=== PATIENT | female | born 1965 | race Caucasian/White ===

== ENCOUNTER 2016-08-05 10:12 | Outpatient (CLI) ==
[2016-02-24 22:44] VITALS: BMI 29.2
[2016-08-05 10:41] LABS: BASOPHILS % (AUTO) 0.8 % (0.0-3.0); EOSINOPHILS # (AUTO) 0.2 K/ul (0.0-0.7); EOSINOPHILS % (AUTO) 4.2 % (0.0-7.0); HEMATOCRIT 38.6 % (37.0-47.0); HEMOGLOBIN 13.2 g/dl (12.0-16.0); IMMATURE GRANULOCYTE % (AUTO) 0.2 % (0.0-5.0); LYMPHOCYTES # (AUTO) 1.3 K/uL (0.60-3.4); LYMPHOCYTES % (AUTO) 26.5 (10.0-50.0); MEAN CORPUSCULAR HEMOGLOBIN 30.8 pg (27.0-31.0); MEAN CORPUSCULAR HGB CONC 34.2 (31.8-35.4); MEAN CORPUSCULAR VOLUME 90.2 fl (81.0-99.0); MONOCYTES # (AUTO) 0.5 K/uL (0.4-2.0); MONOCYTES % (AUTO) 9.3 (0-10); PLATELET COUNT 215 10^3/uL (140-440); RED BLOOD COUNT 4.28 10^6/ul (4.20-5.40); WHITE BLOOD COUNT 5.05 K/ul (4.6-10.2)
[2016-08-05 11:21] LABS: ALBUMIN 3.9 g/dL (3.4-5.0); ALBUMIN/GLOBULIN RATIO 1.44; ANION GAP 14.1; BILIRUBIN,TOTAL 0.62 mg/dL (0.00-1.20); BUN/CREATININE RATIO 21.87; CALCIUM 9.1 mg/dL (8.2-10.2); CHOL/HDL RATIO 4.5 (4.5-5.5); CREATININE 0.64 mg/dL (0.60-1.30); POTASSIUM 4.1 mmol/L (3.5-5.10); TOTAL PROTEIN 6.6 g/dL (6.4-8.2)
== END 2016-08-05 10:13 | disposition home or self-care (01) ==
LOC: LAB 10:12
PROVIDERS: ATTEND Family Medicine
DX: I10 Essential (primary) hypertension (principal); E78.5 Hyperlipidemia, unspecified; R73.9 Hyperglycemia, unspecified; E66.9 Obesity, unspecified; Z79.899 Other long term (current) drug therapy
CPT/HCPCS: 36415; 80053; 80061; 83036; 84439; 84443; 85025

== ENCOUNTER 2016-09-07 08:22 | Emergency (ER) ==
[2016-09-07 08:31] VITALS: BP 132/94; TEMP 100.6; BMI 27.4
--- NOTE | 2016-09-07 08:57 | ED.PDOC ---
General ED Provider: Dr. STACI MEDEROS Chief Complaint: Nausea/Vomiting Stated Complaint: fever chills, coughing, started vomiting since night, hurting all over. Time Seen by Physician: 08:54 Mode of Arrival: Walk-In Information Source: Patient Primary Care Provider: MARIELA NOLASCO Nursing and Triage Documentation Reviewed and Agree: Yes Miscellaneous Complaint Exam - Febrile Illness/Adult Complaint/Exam Symptoms Are: Still present Episodes Lasting: Hours Initial Severity: Moderate Current Severity: Moderate Alleviating: Reports: None Associated Signs and Symptoms: Reports: Headache, Cough, Sore throat, Nausea, Vomiting, Arthralgia, Myalgia Pseudomonas Risk Factors: Reports: None Serious Bacterial Infection Risk Factors: Reports: None Current Antibiotic Use: No Related Surgical History: None Specific Findings: Absent: Meningeal signs, Diaphoresis, Joint swelling Differential Diagnoses: Pneumonia, Viremia Review of Systems - Review Of Systems Constitutional: Reports: Fever, Malaise, Weakness Eyes: Reports: No symptoms Ears, Nose, Mouth, Throat: Reports: Nose discharge, Throat pain Respiratory: Reports: Cough Cardiac: Reports: No symptoms GI: Reports: Nausea, Vomiting : Reports: No symptoms Musculoskeletal: Reports: No symptoms Skin: Reports: No symptoms Neurological: Reports: No symptoms Endocrine: Reports: No symptoms Hematologic/Lymphatic: Reports: No symptoms All Other Systems: Reviewed and Negative Past Medical History - Past Medical History Previously Healthy: Yes Endocrine: Reports: None Cardiovascular: Reports: Hypertension Respiratory: Reports: None Hematological: Reports: None Gastrointestinal: Reports: None Genitourinary: Reports: None Neuro/Psych: Reports: Depression Musculoskeletal: Reports: Arthritis, Back Pain Cancer: Reports: None Last Menstrual Period: unknown - Surgical History General Surgical History: Reports: Tubal ligation, Cholecystectomy, Unknown - Family History Family History: Reports: Unknown - Social History Smoking Status: Never smoker Hx Substance Use: No Alcohol Screening: None Physical Exam - Physical Exam Appearance: Ill-appearing, Obese Ill-appearing: Mild Eyes: EOMI ENT: Erythema Respiratory: Airway patent, Breath sounds clear, Breath sounds equal, Respirations nonlabored Cardiovascular: RRR, Pulses normal, No rub, No murmur GI/: Soft, Nontender, No masses, Bowel sounds normal, No Organomegaly Musculoskeletal: Normal strength, ROM intact, No edema, No calf tenderness Skin: Warm, Dry, Normal color Neurological: Sensation intact, Motor intact, Reflexes intact, Cranial nerves intact, Alert, Oriented Psychiatric: Affect appropriate, Mood appropriate Interpretation - Radiology Interpretation Radiology Interpretation By: Radiologist Radiology Results: Negative Exam Interpreted: CXR Critical Care Note - Critical Care Note Total Time (mins): 0 Course - Course Hematology/Chemistry: 09/07/16 09:00 09/07/16 09:00 Orders, Labs, Meds: Lab Review 09/07/16 09/07/16 09:00 09:15 WBC 4.97 RBC 4.65 Hgb 14.2 Hct 41.5 MCV 89.2 MCH 30.5 MCHC 34.2 RDW Coeff of Gricelda 12.4 Plt Count 227 Immature Gran % (Auto) 0.4 Neut % (Auto) 71.6 Lymph % (Auto) 11.1 [place] % (Auto) 15.5 H Eos % (Auto) 0.8 Baso % (Auto) 0.6 Immature Gran # (Auto) 0.0 Neut # 3.6 Lymph # 0.6 Jerauld # 0.8 Eos # 0.0 Baso # 0.0 Sodium 136 Potassium 3.8 Chloride 101 Carbon Dioxide 23 Anion Gap 15.8 BUN 9 Creatinine 0.77 Estimated GFR (MDRD) 78.00 BUN/Creatinine Ratio 11.68 Glucose 129 H Lactic Acid 17.6 Calcium 9.2 Total Bilirubin 0.51 AST 26 ALT 31 Alkaline Phosphatase 114 H Total Protein 7.5 Albumin 4.2 Globulin 3.3 Albumin/Globulin Ratio 1.27 Procalcitonin < 0.05 Urine Color Yellow Urine Clarity Slightly Urine pH 7.0 Ur Specific Dillon 1.020 Urine Protein Negative Urine Glucose (UA) Negative Urine Ketones Negative Urine Blood Trace-lysed Urine Nitrite Negative Urine Bilirubin Negative Urine Urobilinogen 0.2 Ur Leukocyte Esterase Negative Urine Microscopic RBC 0-2 Ur Squamous Epith Cells 10-20 Amorphous Sediment 1+ Urine Bacteria 1+ Influenza A (Rapid) Negative Influenza B (Rapid) Positive H Orders Category Date Time Status BLOOD CULTURE Stat LAB 09/07/16 09:00 Received CBC W/ AUTO DIFF Stat LAB 09/07/16 09:00 Completed COMPREHENSIVE METABOLIC PANEL Stat LAB 09/07/16 09:00 Completed LACTIC ACID Stat LAB 09/07/16 09:00 Completed MOLECULAR GROUP A STREP Stat LAB 09/07/16 09:15 Results PROCALCITONIN Stat LAB 09/07/16 09:00 Completed RAPID FLU A/B Stat LAB 09/07/16 09:15 Completed STREP SCREEN Stat LAB 09/07/16 09:15 Results UA [URINALYSIS C & S IF INDICATED] Stat LAB 09/07/16 09:15 Completed URINE CULTURE Stat LAB 09/07/16 09:15 Received Acetaminophen [Tylenol] MEDS 09/07/16 08:52 Discontinued 500 mg PO ONCE STA Dexamethasone 4 mg/ml Inj [Decadron 4 mg/ml Sdv] MEDS 09/07/16 08:52 Discontinued 4 mg IM ONCE STA Oseltamivir Phosphate [Tamiflu] MEDS 09/07/16 10:00 Ordered 75 mg PO ONCE CXR [CHEST, 2 VIEWS PA & LAT] Stat RADS 09/07/16 08:53 Completed Medications Generic Name Dose Route Start Last Admin Trade Name Freq PRN Reason Stop Dose Admin Oseltamivir Phosphate 75 mg 09/07/16 10:00 Tamiflu PO ONCE TRESA Discontinued Medications Generic Name Dose Route Start Last Admin Trade Name Freq PRN Reason Stop Dose Admin Acetaminophen 500 mg 09/07/16 08:52 09/07/16 09:11 Tylenol PO 09/07/16 08:53 500 mg ONCE STA Administration Dexamethasone Sodium Phosphate 4 mg 09/07/16 08:52 09/07/16 09:11 Decadron 4 Mg/Ml Sdv IM 09/07/16 08:53 4 mg ONCE STA Administration Vital Signs: Temp Pulse Resp BP Pulse Ox 09/07/16 08:23 100.6 F H 129 H 20 132/94 H 95 Departure - Departure Time of Disposition: 09:58 Disposition: HOME SELF-CARE Discharge Problem: Influenza B Instructions: Influenza (ED) Condition: Stable Pt referred to PMD for follow-up: Yes Additional Instructions: INCREASE HYDRATION KEEP TAKING TYLENOL PRN WITH FOOD FOR FEVER Prescriptions: Oseltamivir Phosphate [Tamiflu] 75 mg PO Q12HR #10 ml Ondansetron HCl [Zofran] 4 mg PO TID #14 tablet Prednisone 10 mg PO BIDWM #14 tablet Allergies/Adverse Reactions: Allergies No Known Allergies Allergy (Verified 09/07/16 08:31) Home Medications: Ambulatory Orders Citalopram Hydrobromide [Celexa] 40 mg PO DAILY 10/09/13 Lisinopril [Zestril] 10 mg PO DAILY 10/09/13 Metoprolol Tartrate [Lopressor] 50 mg PO BID 10/09/13 Risperidone [Risperdal] 0.5 mg PO BEDTIME 08/25/14 Loratadine [Claritin] 10 mg PO DAILY PRN #30 capsule 02/24/16 Ondansetron HCl [Zofran] 4 mg PO TID #14 tablet 09/07/16 Oseltamivir Phosphate [Tamiflu] 75 mg PO Q12HR #10 ml 09/07/16 Prednisone 10 mg PO BIDWM #14 tablet 09/07/16 Disposition Discussed With: Patient
[2016-09-07] MEDS: DECADRON 4 MG/ML SDV IM STA (09:11)
[2016-09-07] MEDS: TYLENOL PO STA (09:11)
[2016-09-07 09:18] LABS: BASOPHILS % (AUTO) 0.6 % (0.0-3.0); EOSINOPHILS % (AUTO) 0.8 % (0.0-7.0); HEMATOCRIT 41.5 % (37.0-47.0); HEMOGLOBIN 14.2 g/dl (12.0-16.0); IMMATURE GRANULOCYTE % (AUTO) 0.4 % (0.0-5.0); LYMPHOCYTES # (AUTO) 0.6 K/uL (0.60-3.4); LYMPHOCYTES % (AUTO) 11.1 (10.0-50.0); MEAN CORPUSCULAR HEMOGLOBIN 30.5 pg (27.0-31.0); MEAN CORPUSCULAR HGB CONC 34.2 (31.8-35.4); MEAN CORPUSCULAR VOLUME 89.2 fl (81.0-99.0); MONOCYTES # (AUTO) 0.8 K/uL (0.4-2.0); MONOCYTES % (AUTO) 15.5 (0-10); NEUTROPHILS # (AUTO) 3.6 K/ul (2.0-6.9); NEUTROPHILS % (AUTO) 71.6; PLATELET COUNT 227 10^3/uL (140-440); RED BLOOD COUNT 4.65 10^6/ul (4.20-5.40); WHITE BLOOD COUNT 4.97 K/ul (4.6-10.2)
--- NOTE | 2016-09-07 09:23 | DI ---
EXAM: Chest two views HISTORY: Coughing COMPARISON: 02/24/2016 TECHNIQUE: Two views of the chest were performed FINDINGS: The lungs are clear. There is no pleural effusion or pneumothorax. The heart is normal in size. The mediastinal contour is normal. There are no acute abnormalities of the bones. IMPRESSION: No acute cardiopulmonary process.
[2016-09-07 09:24] LABS: BILIRUBIN,URINE Negative (NEGATIVE); KETONES,URINE Negative (NEGATIVE); LEUKOCYTE ESTERASE ,URINE Negative (NEGATIVE); NITRITE,URINE Negative (NEGATIVE); PROTEIN,URINE Negative (NEGATIVE); URINE, BLOOD Trace-lysed (NEGATIVE)
[2016-09-07 09:25] LABS: ADD URINE MICROSCOPIC YES
[2016-09-07 09:26] LABS: BACTERIA,URINE 1+ (NOT PRESENT)
[2016-09-07 09:30] LABS: ALBUMIN 4.2 g/dL (3.4-5.0); ALBUMIN/GLOBULIN RATIO 1.27; ANION GAP 15.8; BILIRUBIN,TOTAL 0.51 mg/dL (0.00-1.20); BUN/CREATININE RATIO 11.68; CALCIUM 9.2 mg/dL (8.2-10.2); CREATININE 0.77 mg/dL (0.60-1.30); POTASSIUM 3.8 mmol/L (3.5-5.10); TOTAL PROTEIN 7.5 g/dL (6.4-8.2)
[2016-09-07 09:38] LABS: FLU INTERNAL QC INTERNAL QC VALID; RAPID FLU A NEGATIVE (NEGATIVE); RAPID FLU B POSITIVE (NEGATIVE)
[2016-09-07] MEDS ORDERED: TAMIFLU PO SCH (10:00)
== END 2016-09-07 10:16 | disposition home or self-care (01) ==
LOC: ED 08:22
DX: J10.1 Influenza due to other identified influenza virus with other respiratory manifestations (principal)
CPT/HCPCS: 36415; 80053; 81001; 83605; 84145; 85025; 87040; 87086; 87651; 87804; 87880; 96372; 99283

== ENCOUNTER 2016-10-21 11:16 | Outpatient (CLI) ==
--- NOTE | 2016-10-21 11:47 | CT ---
EXAM: CT PARANASAL SINUSES HISTORY: Headache, facial tenderness TECHNIQUE: CT paranasal sinuses without contrast. Detailed axial sections. Coronal and sagittal r eformations. FINDINGS: Compared to 02/28/2016. Frontal sinuses: Clear Ethmoid sinuses: Occluded Sphenoid sinuses: Clear Maxillary sinuses: Minimal mucosal thickening lateral right cell. Left cell clear. General: No sinus fluid or obvious postop changes. Nasal septum is midline and the turbinates unre markable. Mastoid air cells are aerated. IMPRESSION: Only trace evidence of chronic sinusitis, significant improvement since previous exam.
== END 2016-10-21 11:17 | disposition home or self-care (01) ==
LOC: RAD 11:16
PROVIDERS: ATTEND Family Medicine
DX: R51 Headache (principal)

== ENCOUNTER 2017-02-25 10:57 | Outpatient (CLI) ==
[2017-02-25 11:17] LABS: BASOPHILS # (AUTO) 0.1 K/uL (0-0.2); BASOPHILS % (AUTO) 1.2 % (0.0-3.0); EOSINOPHILS # (AUTO) 0.2 K/ul (0.0-0.7); EOSINOPHILS % (AUTO) 4.5 % (0.0-7.0); HEMATOCRIT 41.1 % (37.0-47.0); HEMOGLOBIN 14.1 g/dl (12.0-16.0); IMMATURE GRANULOCYTE % (AUTO) 0.2 % (0.0-5.0); LYMPHOCYTES # (AUTO) 1.1 K/uL (0.60-3.4); LYMPHOCYTES % (AUTO) 24.6 (10.0-50.0); MEAN CORPUSCULAR HEMOGLOBIN 30.7 pg (27.0-31.0); MEAN CORPUSCULAR HGB CONC 34.3 (31.8-35.4); MEAN CORPUSCULAR VOLUME 89.3 fl (81.0-99.0); MONOCYTES # (AUTO) 0.4 K/uL (0.4-2.0); MONOCYTES % (AUTO) 8.7 (0-10); NEUTROPHILS # (AUTO) 2.6 K/ul (2.0-6.9); NEUTROPHILS % (AUTO) 60.8; PLATELET COUNT 232 10^3/uL (140-440); WHITE BLOOD COUNT 4.26 K/ul (4.6-10.2)
[2017-02-25 11:39] LABS: ALBUMIN 3.9 g/dL (3.4-5.0); ALBUMIN/GLOBULIN RATIO 1.34; BILIRUBIN,TOTAL 0.65 mg/dL (0.00-1.20); BUN/CREATININE RATIO 21.87; CALCIUM 9.4 mg/dL (8.2-10.2); CHOL/HDL RATIO 4.1 (4.5-5.5); CREATININE 0.64 mg/dL (0.60-1.30); TOTAL PROTEIN 6.8 g/dL (6.4-8.2)
== END 2017-02-25 10:58 | disposition home or self-care (01) ==
LOC: LAB 10:57
PROVIDERS: ATTEND Family Medicine
DX: E78.5 Hyperlipidemia, unspecified (principal); I10 Essential (primary) hypertension; R73.9 Hyperglycemia, unspecified; F31.9 Bipolar disorder, unspecified; Z79.899 Other long term (current) drug therapy
CPT/HCPCS: 36415; 80053; 80061; 83036; 85025

== ENCOUNTER 2017-03-24 10:30 | Outpatient (CLI) ==
--- NOTE | 2017-03-24 10:55 | DI ---
EXAM: Three views of the right wrist. History: Right wrist pain. Findings: No acute fracture or dislocation. No abnormal calcifications or radiopaque foreign bodies . Joint spaces are preserved. Impression: No acute osseous abnormality.
--- NOTE | 2017-03-24 10:56 | DI ---
EXAM: Radiographs, right hand HISTORY: Right hand pain. COMPARISON: None available. TECHNIQUE: Three views. FINDINGS: Bone mineralization is decreased. There is no fracture or dislocation. Joint space narro wing and marginal osteophyte formation noted in the interphalangeal joints, moderate at most distal i nterphalangeal joints and mild elsewhere. Mild changes also seen at the first carpal metacarpal join t. No erosive changes are seen. No focal soft tissue abnormality is seen. 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
== END 2017-03-24 10:31 | disposition home or self-care (01) ==
LOC: RAD 10:30
PROVIDERS: ATTEND Family Medicine
DX: M25.531 Pain in right wrist (principal); M79.641 Pain in right hand

== ENCOUNTER 2017-04-03 11:58 | Outpatient (CLI) ==
[2017-04-04 08:37] LABS: C-REACTIVE PROTEIN 1.7 mg/L (0.0-4.9); RHEUMATOID ARTHRITIS FACTOR < 10.0 IU/mL (0.0-13.9)
== END 2017-04-03 11:59 | disposition home or self-care (01) ==
LOC: LAB 11:58
PROVIDERS: ATTEND Family Medicine
DX: M81.0 Age-related osteoporosis without current pathological fracture (principal); M19.90 Unspecified osteoarthritis, unspecified site
CPT/HCPCS: 36415; 82306; 86140; 86430

== ENCOUNTER 2017-05-26 13:15 | Outpatient (CLI) ==
[2017-04-26 05:52] VITALS: BMI 29.2
--- NOTE | 2017-05-26 14:51 | DEXA ---
EXAM: Bone densitometry. History: Postmenopausal. Findings: Evaluation of the lumbar spine reveals a total bone mineral density of 1.366 grams per centimeter squ ared with T-score of 1.5. Evaluation of the left hip reveals a total bone mineral density of 1.020 grams per centimeter squared with T-score of 0.1. Evaluation of the right hip reveals a total bone mineral density of 1.052 grams per centimeter square d with T-score of 0.4 Impression: Normal bone mineral density of the lumbar spine and bilateral hips
== END 2017-05-26 13:16 | disposition home or self-care (01) ==
LOC: RAD 13:15
PROVIDERS: ATTEND Family Medicine
DX: M54.5 Low back pain (principal); Z78.0 Asymptomatic menopausal state

== ENCOUNTER 2017-06-07 08:33 | Emergency (ER) ==
[2017-06-07 08:36] VITALS: BP 124/61; TEMP 97.6; BMI 26.5
[2017-06-07] MEDS ORDERED: BOOSTRIX IM ONE (08:38)
[2017-06-07] MEDS ORDERED: LIDOCAINE HCL 1% SDV SUBCUT STA (08:38)
--- NOTE | 2017-06-07 09:39 | ED.PDOC ---
General ED Provider: Dr. ASH PERKINS Chief Complaint: Finger Laceration Stated Complaint: I cut my left hand on the left index finger. Time Seen by Physician: 09:36 Mode of Arrival: Walk-In Information Source: Patient Exam Limitations: No limitations Primary Care Provider: MARIELA NOLASCO Nursing and Triage Documentation Reviewed and Agree: Yes Review of Systems - Review Of Systems Constitutional: Reports: No symptoms Skin: Reports: Other (laceration left index finger ) All Other Systems: Reviewed and Negative Past Medical History - Past Medical History Previously Healthy: Yes Endocrine: Reports: None Cardiovascular: Reports: Hypertension Respiratory: Reports: None Hematological: Reports: None Gastrointestinal: Reports: None Genitourinary: Reports: None Neuro/Psych: Reports: Depression Musculoskeletal: Reports: Arthritis, Back Pain Cancer: Reports: None Last Menstrual Period: 5 years ago - Surgical History General Surgical History: Reports: Tubal ligation, Cholecystectomy, Unknown - Family History Family History: Reports: Unknown - Social History Smoking Status: Never smoker Hx Substance Use: No Alcohol Screening: Occasionally - Immunizations Tetanus Shot up to Date: No (unknown) Physical Exam - Physical Exam Appearance: Well-nourished Pain Distress: Moderate Musculoskeletal: ROM intact (distal to the injury ) Skin: Warm, Dry Neurological: Sensation intact (on the hand ) Psychiatric: Anxious Procedures - Laceration/Wound Repair left index finger Wound Description: Flap Wound Length (cm): 2 cm Wound Width: 0.3 Wound Depth: 0.4 Wound Explored: Clean Wound Irrigated: Yes Wound Prep: Saline, Hibiclens Anesthesia: Lidocaine Suture Size and Type: 5.0 Ethlone Number of Sutures: 5 (sinple ) Sterile Dressing Applied?: Yes Splint Applied?: No Progress: Tolerated well Critical Care Note - Critical Care Note Total Time (mins): 0 Course - Course Orders, Labs, Meds: Orders Category Date Time Status Diphth,Pertuss(Acell),Tet Vac [Boostrix] MEDS 06/07/17 08:38 Discontinued 0.5 ml IM .ONCE ONE Lidocaine HCl/Pf [Lidocaine HCl 1% Sdv] MEDS 06/07/17 08:38 Discontinued 5 ml SUBCUT ONCE STA Medications Discontinued Medications Generic Name Dose Route Start Last Admin Trade Name Freq PRN Reason Stop Dose Admin Diphtheria/Pertussis/Tetanus Vacc 0.5 ml 06/07/17 08:38 06/07/17 08:49 Boostrix IM 12/17/17 08:39 0.5 ml .ONCE ONE Administration Lidocaine HCl 5 ml 06/07/17 08:38 Lidocaine Hcl 1% Sdv SUBCUT 06/07/17 08:39 ONCE STA Vital Signs: Temp Pulse Resp BP Pulse Ox 06/07/17 08:34 97.6 F 89 20 124/61 98 Departure - Departure Time of Disposition: 09:46 Disposition: HOME SELF-CARE Discharge Problem: Laceration of finger Instructions: Finger Laceration (ED) Condition: Fair Pt referred to PMD for follow-up: Yes Additional Instructions: Sutures removed in 7-10 days Change dressing once or twice a day. Allergies/Adverse Reactions: Allergies No Known Allergies Allergy (Verified 06/07/17 08:37) Home Medications: Ambulatory Orders Citalopram Hydrobromide [Celexa] 40 mg PO DAILY 10/09/13 Lisinopril [Zestril] 10 mg PO DAILY 10/09/13 Risperidone [Risperdal] 0.5 mg PO BEDTIME 08/25/14 Loratadine [Claritin] 10 mg PO DAILY PRN #30 capsule 02/24/16 Montelukast Sodium [Singulair] 10 mg PO DAILY PRN 04/26/17 Ondansetron HCl [Zofran] 4 mg PO TID PRN 04/26/17 Disposition Discussed With: Patient
== END 2017-06-07 09:55 | disposition home or self-care (01) ==
LOC: ED 08:33
DX: S61.211A Laceration without foreign body of left index finger without damage to nail, initial encounter (principal); W45.8XXA Other foreign body or object entering through skin, initial encounter
CPT/HCPCS: 90471; 90715; 99283

== ENCOUNTER 2017-07-13 09:54 | Outpatient (CLI) | END 2017-07-13 09:55 | disposition home or self-care (01) | LOC: LAB 09:54 | PROVIDERS: ATTEND Family Medicine | DX: E78.5 Hyperlipidemia, unspecified (principal); I10 Essential (primary) hypertension; R73.9 Hyperglycemia, unspecified; F31.9 Bipolar disorder, unspecified; Z79.899 Other long term (current) drug therapy | CPT/HCPCS: 36415; 80053; 80061; 85025 ==

== ENCOUNTER 2017-08-06 11:21 | Outpatient (CLI) ==
--- NOTE | 2017-08-06 13:04 | CT ---
EXAM: CT of the sinuses without contrast History: Headache and sinus pressure Comparison: Head CT 10/21/2016 Technique: Multiplanar CT images through the sinuses were obtained without the administration of IV contrast Findings: Orbits are intact. The visualized intracranial contents demonstrate no grossly acute find ings. Surrounding soft tissues demonstrate no acute abnormality. No acute fracture or subluxation. The visualized mastoid air cells are clear. Nasal septum is bowed to the right. Bilateral ostiomeatal units are not occluded. Small amount of fluid is seen within t he right sphenoid sinus and is new compared to the prior study. Minimal mucosal thickening of the eth moid sinuses. Impression: 1. There is new small amount of fluid within the right sphenoid sinus. 2. Minimally mucosal thickening of the ethmoid air cells not significantly changed.
== END 2017-08-06 11:22 | disposition home or self-care (01) ==
LOC: RAD 11:21
PROVIDERS: ATTEND Family Medicine
DX: J02.9 Acute pharyngitis, unspecified (principal); R52 Pain, unspecified; R51 Headache; R00.0 Tachycardia, unspecified
CPT/HCPCS: 36415; 80053; 85025; 87502; 87651; 93005; 93010

== ENCOUNTER 2018-03-29 10:45 | Outpatient (CLI) ==
--- NOTE | 2018-03-29 12:51 | DI ---
EXAM: Chest two view, frontal and lateral views. HISTORY: Right chest wall pain. COMPARISON: 04/29/2017. FINDINGS: The heart size is normal. There is no pulmonary vascular congestion. The lungs are clear . No pleural effusion or pneumothorax is seen. No acute osseous abnormality identified. Cholecyste ctomy clips noted. Since the prior study, there has been no significant interval change. IMPRESSION: No acute cardiopulmonary process.
== END 2018-03-29 10:46 | disposition home or self-care (01) ==
LOC: LAB 10:45
PROVIDERS: ATTEND Family Medicine
DX: E78.5 Hyperlipidemia, unspecified (principal); R73.9 Hyperglycemia, unspecified; I10 Essential (primary) hypertension; F31.9 Bipolar disorder, unspecified; R07.89 Other chest pain; Z79.899 Other long term (current) drug therapy
CPT/HCPCS: 36415; 80053; 80061; 81001; 85025

== ENCOUNTER 2018-04-21 11:12 | Outpatient (CLI) | END 2018-04-21 11:13 | disposition home or self-care (01) | LOC: LAB 11:12 | PROVIDERS: ATTEND Family Medicine | DX: N30.00 Acute cystitis without hematuria (principal) | CPT/HCPCS: 81001; 87086 ==